=== PATIENT | male | born 2000 ===

== ENCOUNTER 2025-01-25 07:05 | Day surgery (SDC) | payer OTHER ==
[2025-01-21 10:59] LABS: HEMATOCRIT 44.9 % (39.0-48.0); HEMOGLOBIN 15.9 g/dL (13-16.00); MEAN CELL VOLUME 89.9 fL (80.0-100.00); MEAN CORPUSCULAR HEMOGLOBIN 31.9 pg (27.00-32.0); MEAN CORPUSCULAR HGB CONC 35.5 g/dl (32.0-36.0); PLATELET COUNT 216 K/uL (150-450); RED CELL DISTRIBUTION WIDTH 13.1 % (11.5-14.5)
[2025-01-21 11:02] VITALS: BP 103/58
[2025-01-21 11:04] LABS: URINE APPEARANCE Clear; URINE BILIRRUBIN Negative (NEGATIVE); URINE BLOOD Negative; URINE COLOR Yellow; URINE GLUCOSE Negative (NEGATIVE); URINE KETONE Negative (NEGATIVE); URINE LEUKOCYTE Negative; URINE NITRATE Negative; URINE PROTEIN Negative (NEGATIVE); URINE UROBILINOGEN 0.2 E.U./dl
[2025-01-21 11:05] LABS: URINE BACTERIA 1.2 uL (0.0-1933); URINE EPITHELIAL CELLS 0.4 uL (0.0-38.8); URINE RBC 0.1 uL (0.0-20.8); URINE WBC 7.4 uL (0.0-23.2)
[2025-01-21 11:33] LABS: INR 1.08; PARTIAL THROMBOPLASTIN TIME 26.7 SECONDS (22.0-34.0); PROTHROMBIN TIME 11.7 SECONDS (9.0-11.5)
[2025-01-21 11:39] LABS: ALBUMIN 4.1 gm/dL (3.4-5.0); CALCIUM 9.5 mg/dL (8.5-10.1); CREATININE SERUM 0.8 mg/dL (0.70-1.30); GFR 117.78; PHOSPHOROUS 3.3 mg/dL (2.5-4.9); POTASSIUM 4.42 mEq/L (3.5-5.1)
[~2025-01-25] VITALS: Ht 170.2 cm; Wt 56.7 kg
[2025-01-25] MEDS ORDERED: CEFAZOLIN SODIUM 1,000 MG VIAL IV ONE (12:45)
[2025-01-25] MEDS ORDERED: OXYMETAZOLINE HCL 15 ML NASAL DROPS NASAL ONE (12:45)
[2025-01-25] MEDS ORDERED: AMOX-CLAV 875-1 EAC1 PO (12:51)
[2025-01-25] MEDS ORDERED: AYR SALINE50 ML NASAL (12:52)
[2025-01-25] MEDS ORDERED: MORPHINE SULFATE 4 MG/ML VIAL IV ONE (13:25)
== END 2025-01-25 15:10 | disposition home or self-care (01) ==
LOC: CIR.AMB 07:05
PROVIDERS: ATTEND Otolaryngology Otology & Neurotology
DX: J32.4 Chronic pansinusitis (principal); J34.3 Hypertrophy of nasal turbinates